=== PATIENT | male | born 1940 | race Caucasian/White ===

== ENCOUNTER 2022-03-25 16:39 | Outpatient (CLI) | payer MEDICARE, SELFPAY ==
[2022-03-25 13:41] LABS: Albumin* 4.4 g/dL (3.3-5.0)
[2022-03-25 13:42] LABS: Chloride* 99 mmol/L (96-114); Potassium* 4.4 mmol/L (3.6-5.1); Sodium* 136 mmol/L (135-149)
[2022-03-25 13:44] LABS: Cholesterol* 119 mg/dL (90-199); Creatinine* 0.7 mg/dL (0.5-1.5); Estimated Glomerular Filt Rate 93 ml/min
[2022-03-25 13:45] LABS: Alanine Aminotransferase* 24 U/L (4-50); Alkaline Phosphatase* 87 U/L (40-150); Aspartate Amino Transferase* 23 U/L (12-35); Bilirubin Total* 1.5 mg/dL (0.1-1.5); Blood Urea Nitrogen* 14 mg/dL (7-30); Carbon Dioxide* 29 mmol/L (20-32); Glucose* 135 mg/dL (60-115); Total Protein* 7.9 g/dL (6.0-8.3); Triglycerides* 78 mg/dL (40-149)
[2022-03-25 13:46] LABS: HDL Cholesterol* 50 mg/dL (>=40); LDL Cholesterol Calculated 53 mg/dL (<100)
[2022-03-25 14:18] LABS: PSA Screen* 1.09 ng/mL (0.10-4.00)
[2022-03-25 14:37] LABS: Creatinine Urine 40.2 mg/dL
[2022-03-25 14:40] LABS: Microalbumin Creatinine Ratio 20 mg/g (0-30); Microalbumin Urine < 1 mg/dL
== END 2022-03-25 16:40 | disposition home or self-care (01) ==
PROVIDERS: PCP Family Medicine; Visit Provider Physician Assistant Medical
DX: E11.9 Type 2 diabetes mellitus without complications (principal); I10 Essential (primary) hypertension; E78.5 Hyperlipidemia, unspecified; N40.0 Benign prostatic hyperplasia without lower urinary tract symptoms
CPT/HCPCS: 80053; 80061; 82043; 82570; 84153

== ENCOUNTER 2023-02-09 07:24 | Outpatient (CLI) | payer MEDICARE, SELFPAY | END 2023-02-09 07:25 | disposition home or self-care (01) | LOC: NFLDREF 02-10 05:28 | PROVIDERS: PCP Physician Assistant Medical; Referring Provider Physician Assistant Medical; Visit Provider Physician Assistant Medical | DX: E11.9 Type 2 diabetes mellitus without complications (principal); E78.2 Mixed hyperlipidemia; I10 Essential (primary) hypertension; Z12.5 Encounter for screening for malignant neoplasm of prostate | CPT/HCPCS: 80053; 80061; 84153 ==

== ENCOUNTER 2024-01-25 08:11 | Outpatient (CLI) | payer MEDICARE, SELFPAY | END 2024-01-25 08:12 | disposition home or self-care (01) | LOC: NFLDREF 01-29 00:30 | PROVIDERS: PCP Physician Assistant Medical; Referring Provider Physician Assistant Medical; Visit Provider Physician Assistant Medical | DX: E11.9 Type 2 diabetes mellitus without complications (principal); I10 Essential (primary) hypertension; E78.2 Mixed hyperlipidemia; Z79.4 Long term (current) use of insulin | CPT/HCPCS: 80053; 80061; 82043; 82570; 84443 ==

== ENCOUNTER 2024-07-24 07:43 | Outpatient (CLI) | payer MEDICARE, SELFPAY | END 2024-07-24 07:44 | disposition home or self-care (01) | LOC: NFLDREF 08-02 00:36 | PROVIDERS: PCP Physician Assistant Medical; Referring Provider Physician Assistant Medical; Visit Provider Physician Assistant Medical | DX: Z12.5 Encounter for screening for malignant neoplasm of prostate (principal); N40.0 Benign prostatic hyperplasia without lower urinary tract symptoms | CPT/HCPCS: G0103 ==

== ENCOUNTER 2025-01-05 07:57 | Outpatient (CLI) | payer MEDICARE, SELFPAY | END 2025-01-05 07:58 | disposition home or self-care (01) | LOC: NFLDREF 01-07 19:01 | PROVIDERS: PCP Physician Assistant Medical; Referring Provider Physician Assistant Medical; Visit Provider Physician Assistant Medical | DX: E11.9 Type 2 diabetes mellitus without complications (principal); Z79.4 Long term (current) use of insulin; I10 Essential (primary) hypertension; E78.2 Mixed hyperlipidemia | CPT/HCPCS: 80053; 80061; 82043; 82570; 84443 ==